=== PATIENT | male | born 1985 ===

== ENCOUNTER 2019-08-14 16:20 | Inpatient (IN) | payer SELFPAY ==
--- NOTE | 2019-08-14 16:31 | Event Note ---
ED Screening Note Date of service: 08/14/19 Time: 16:30 ED Screening Note: c/o mid abdominal pain x yesterday recent diagnosis of diabetes, not currently on medication denies alcohol This initial assessment/diagnostic orders/clinical plan/treatment(s) is/are subject to change based on patients health status, clinical progression and re- assessment by fellow clinical providers in the ED. Further treatment and workup at subsequent clinical providers discretion. Patient/guardian urged not to elope from the ED as their condition may be serious if not clinically assessed and managed. Initial orders include: labs CT
[2019-08-14 16:47] LABS: Hematocrit 51.5 % (35.5-45.6); Hemoglobin 17.8 gm/dl (11.8-15.2); Mean Corpuscular HGB Conc 35 % (32-34); Mean Corpuscular Volume 90 fl (84-94); Platelet Count 420 K/mm3 (140-440); Red Cell Distribution Width 13.3 % (13.2-15.2)
[2019-08-14] MEDS ORDERED: DEXTROSE 50% IN WATER (25GM) 50 ML SYRINGE IV PRN (16:58)
[2019-08-14] MEDS ORDERED: SODIUM CHLORIDE 0.9% 1000 ML 1,000 ML IV ONE ×3 (16:58→17:34)
[2019-08-14] MEDS ORDERED: INSULIN REGULAR, HUMAN 100 UNITS in SODIUM CHLORIDE 0.9% 99 ML IV SCH (17:00)
[2019-08-14 17:03] LABS: Albumin 5.4 g/dL (3.9-5); Bilirubin,Direct 0.3 mg/dL (0-0.2); Calcium 9.5 mg/dL (8.4-10.2)
[2019-08-14] MEDS ORDERED: ONDANSETRON 4 MG/2 ML INJ IV ONE (17:16)
[2019-08-14] MEDS ORDERED: FAMOTIDINE 20 MG/2 ML INJ IV ONE (17:16)
[2019-08-14] MEDS ORDERED: MORPHINE 4 MG/1 ML INJ IV ONE (17:17)
[2019-08-14 17:22] LABS: Anisocytosis Few; Basophils % (Manual) 0 % (0.0-1.8); Eosinophils % (Manual) 0 % (0.0-4.3); Monocytes % (Manual) 0 % (0.0-7.3); Stomatocytes Few; Total Cells Counted 100
[2019-08-14 17:23] LABS: Giant Platelets Rare; Large Platelets 1+; Platelet Estimate Consistent w Auto
--- NOTE | 2019-08-14 17:47 | Emergency Department Report ---
ED Abdominal Pain HPI - General Chief Complaint: Abdominal Pain Stated Complaint: STOMACH PAIN VOMITING Time Seen by Provider: 08/14/19 16:27 Source: patient Mode of arrival: Ambulatory Limitations: No Limitations - History of Present Illness Initial Comments: 35-year-old male with a past medical history [id number] diabetes presents to the hospital planing of hyperglycemia, nausea, vomiting, and generalized abdominal pain for last 3 days. Patient has been diagnosed with diabetes 1 year ago and is from [place]. 3 weeks ago he ran out of his previously prescribed medication from [place]. Yesterday he went to an urgent care clinic with complaints of nausea and vomiting. He was told that his sugar was high and he had a UTI. He was started on metformin 850 mg twice daily and an unknown antibiotic. He was told if his nausea vomiting continued he would need to go to the ER. Patient reports polyuria up until about 2 days ago.. Denies previous history of DKA or ICU admission. Patient complains of generalized burning pain with intermittent sharpness that is worse with palpation. He denies diarrhea, fever, history of previous abd surgeries. - Related Data Home Medications Medication Instructions Recorded Confirmed Last Taken Lisinopril [Zestril] 5 mg PO ONCE 08/14/19 08/14/19 Unknown metFORMIN [Glucophage] 850 mg PO ONCE 08/14/19 08/14/19 Unknown Allergies Allergy/AdvReac Type Severity Reaction Status Date / Time No Known Allergies Allergy Verified 08/14/19 16:22 ED Review of Systems ROS: Stated complaint: STOMACH PAIN VOMITING Other details as noted in HPI Comment: All other systems reviewed and negative ED Past Medical Hx - Past Medical History Previous Medical History?: Yes Hx Diabetes: Yes - Surgical History Past Surgical History?: No - Social History Smoking Status: Never Smoker Substance Use Type: None - Medications Home Medications: Home Medications Medication Instructions Recorded Confirmed Last Taken Type Lisinopril [Zestril] 5 mg PO ONCE 08/14/19 08/14/19 Unknown History metFORMIN [Glucophage] 850 mg PO ONCE 08/14/19 08/14/19 Unknown History ED Physical Exam - General Limitations: No Limitations - Other Other exam information: General: No acute distress Head: Atraumatic Eyes: normal appearance ENT: Dry mucous membrane Neck: Normal appearance, no midline tenderness Chest: Clear to auscultation bilaterally CV: Tachycardic regular rhythm Abdomen: Soft, normal bowel sounds, right lower quadrant and epigastric tenderness, no rebound or guarding Back: Normal inspection Extremity: Normal inspection, full range of motion Neuro: Alert O x 3, no facial asymmetry, speech clear, no gross motor sensory deficit Psych: Appropriate behavior Skin: No rash ED Course Vital Signs 08/14/19 08/14/19 08/14/19 16:31 17:30 18:09 Temperature 98.7 F Pulse Rate 137 H 107 H 105 H Respiratory 18 24 24 Rate Blood Pressure 145/86 Blood Pressure 129/75 148/69 [Right] O2 Sat by Pulse 100 99 98 Oximetry 08/14/19 19:41 Temperature Pulse Rate 106 H Respiratory 18 Rate Blood Pressure Blood Pressure 120/60 [Right] O2 Sat by Pulse 99 Oximetry ED Medical Decision Making - Lab Data Result diagrams: 08/14/19 16:37 08/14/19 21:19 Lab Results 08/14/19 08/14/19 08/14/19 Range/Units 16:37 16:37 16:37 WBC 15.7 H (4.5-11.0) K/mm3 RBC 5.70 H (3.65-5.03) M/mm3 Hgb 17.8 H (11.8-15.2) gm/dl Hct 51.5 H (35.5-45.6) % MCV 90 (84-94) fl MCH 31 (28-32) pg MCHC 35 H (32-34) % RDW 13.3 (13.2-15.2) % Plt Count 420 (140-440) K/mm3 Add Manual Diff Complete Total Counted 100 Seg Neutrophils % Booth Supervisor Seg Neuts % (Manual) 90.0 H (40.0-70.0) % Band Neutrophils % 0 % Lymphocytes % (Manual) 10.0 L (13.4-35.0) % Reactive Lymphs % (Man) 0 % Monocytes % (Manual) 0 (0.0-7.3) % Eosinophils % (Manual) 0 (0.0-4.3) % Basophils % (Manual) 0 (0.0-1.8) % Metamyelocytes % 0 % Myelocytes % 0 % Promyelocytes % 0 % Blast Cells % 0 % Nucleated RBC % Not Reportable Seg Neutrophils # Man 14.1 H (1.8-7.7) K/mm3 Band Neutrophils # 0.0 K/mm3 Lymphocytes # (Manual) 1.6 (1.2-5.4) K/mm3 Abs React Lymphs (Man) 0.0 K/mm3 Monocytes # (Manual) 0.0 (0.0-0.8) K/mm3 Eosinophils # (Manual) 0.0 (0.0-0.4) K/mm3 Basophils # (Manual) 0.0 (0.0-0.1) K/mm3 Metamyelocytes # 0.0 K/mm3 Myelocytes # 0.0 K/mm3 Promyelocytes # 0.0 K/mm3 Blast Cells # 0.0 K/mm3 WBC Morphology Not Reportable Hypersegmented Neuts Not Reportable Hyposegmented Neuts Not Reportable Hypogranular Neuts Not Reportable Smudge Cells Not Reportable Toxic Granulation Not Reportable Toxic Vacuolation Not Reportable Dohle Bodies Not Reportable Pelger-Huet Anomaly Not Reportable Pramod Rods Not Reportable Platelet Estimate Consistent w auto Clumped Platelets Not Reportable Plt Clumps, EDTA Not Reportable Large Platelets 1+ Giant Platelets Rare Platelet Satelliting Not Reportable Plt Morphology Comment Not Reportable RBC Morphology Not Reportable Dimorphic RBCs Not Reportable Polychromasia Not Reportable Hypochromasia Not Reportable Poikilocytosis Not Reportable Anisocytosis Few Microcytosis Not Reportable Macrocytosis Not Reportable Spherocytes Not Reportable Pappenheimer Bodies Not Reportable Sickle Cells Not Reportable Target Cells Not Reportable Tear Drop Cells Not Reportable Ovalocytes Not Reportable Stomatocytes Few Helmet Cells Not Reportable [place] Bodies Not Reportable [place] Rings Not Reportable Naresh Cells Not Reportable Bite Cells Not Reportable Crenated Cell Not Reportable Elliptocytes Not Reportable Acanthocytes (Spur) Not Reportable Rouleaux Not Reportable Hemoglobin C Crystals Not Reportable Schistocytes Not Reportable Malaria parasites Not Reportable Dilshad Bodies Not Reportable Hem Pathologist Commnt No VBG pH (7.320-7.420) Sodium 127 L (137-145) mmol/L Potassium 4.2 (3.6-5.0) mmol/L Chloride 84.0 L (98-107) mmol/L Carbon Dioxide 5 L* (22-30) mmol/L Anion Gap 42 mmol/L BUN 22 H (9-20) mg/dL Creatinine 1.5 (0.8-1.5) mg/dL Estimated GFR 54 ml/min BUN/Creatinine Ratio 15 % Glucose 530 H* (75-100) mg/dL POC Glucose 426 H (70-105) Lactic Acid (0.7-2.0) mmol/L Calcium 9.5 (8.4-10.2) mg/dL Phosphorus (2.5-4.5) mg/dL Magnesium (1.7-2.3) mg/dL Total Bilirubin 0.80 (0.1-1.2) mg/dL Direct Bilirubin 0.3 H (0-0.2) mg/dL Indirect Bilirubin 0.5 mg/dL AST 13 (5-40) units/L ALT 37 (7-56) units/L Alkaline Phosphatase 167 H (35-129) units/L Total Protein 8.7 H (6.3-8.2) g/dL Albumin 5.4 H (3.9-5) g/dL Albumin/Globulin Ratio 1.6 % Lipase (13-60) units/L 08/14/19 08/14/19 08/14/19 Range/Units 16:37 16:37 Unknown WBC (4.5-11.0) K/mm3 RBC (3.65-5.03) M/mm3 Hgb (11.8-15.2) gm/dl Hct (35.5-45.6) % MCV (84-94) fl MCH (28-32) pg MCHC (32-34) % RDW (13.2-15.2) % Plt Count (140-440) K/mm3 Add Manual Diff Total Counted Seg Neutrophils % Seg Neuts % (Manual) (40.0-70.0) % Band Neutrophils % % Lymphocytes % (Manual) (13.4-35.0) % Reactive Lymphs % (Man) % Monocytes % (Manual) (0.0-7.3) % Eosinophils % (Manual) (0.0-4.3) % Basophils % (Manual) (0.0-1.8) % Metamyelocytes % % Myelocytes % % Promyelocytes % % Blast Cells % % Nucleated RBC % Seg Neutrophils # Man (1.8-7.7) K/mm3 Band Neutrophils # K/mm3 Lymphocytes # (Manual) (1.2-5.4) K/mm3 Abs React Lymphs (Man) K/mm3 Monocytes # (Manual) (0.0-0.8) K/mm3 Eosinophils # (Manual) (0.0-0.4) K/mm3 Basophils # (Manual) (0.0-0.1) K/mm3 Metamyelocytes # K/mm3 Myelocytes # K/mm3 Promyelocytes # K/mm3 Blast Cells # K/mm3 WBC Morphology Hypersegmented Neuts Hyposegmented Neuts Hypogranular Neuts Smudge Cells Toxic Granulation Toxic Vacuolation Dohle Bodies Pelger-Huet Anomaly Pramod Rods Platelet Estimate Clumped Platelets Plt Clumps, EDTA Large Platelets Giant Platelets Platelet Satelliting Plt Morphology Comment RBC Morphology Dimorphic RBCs Polychromasia Hypochromasia Poikilocytosis Anisocytosis Microcytosis Macrocytosis Spherocytes Pappenheimer Bodies Sickle Cells Target Cells Tear Drop Cells Ovalocytes Stomatocytes Helmet Cells [place] Bodies [place] Rings Weare Cells Bite Cells Crenated Cell Elliptocytes Acanthocytes (Spur) Rouleaux Hemoglobin C Crystals Schistocytes Malaria parasites Dilshad Bodies Hem Pathologist Commnt VBG pH 7.088 L* (7.320-7.420) Sodium (137-145) mmol/L Potassium (3.6-5.0) mmol/L Chloride (98-107) mmol/L Carbon Dioxide (22-30) mmol/L Anion Gap mmol/L BUN (9-20) mg/dL Creatinine (0.8-1.5) mg/dL Estimated GFR ml/min BUN/Creatinine Ratio % Glucose (75-100) mg/dL POC Glucose (70-105) Lactic Acid 2.60 H* (0.7-2.0) mmol/L Calcium (8.4-10.2) mg/dL Phosphorus (2.5-4.5) mg/dL Magnesium (1.7-2.3) mg/dL Total Bilirubin (0.1-1.2) mg/dL Direct Bilirubin (0-0.2) mg/dL Indirect Bilirubin mg/dL AST (5-40) units/L ALT (7-56) units/L Alkaline Phosphatase (35-129) units/L Total Protein (6.3-8.2) g/dL Albumin (3.9-5) g/dL Albumin/Globulin Ratio % Lipase 683 H (13-60) units/L 08/14/19 Range/Units Unknown WBC (4.5-11.0) K/mm3 RBC (3.65-5.03) M/mm3 Hgb (11.8-15.2) gm/dl Hct (35.5-45.6) % MCV (84-94) fl MCH (28-32) pg MCHC (32-34) % RDW (13.2-15.2) % Plt Count (140-440) K/mm3 Add Manual Diff Total Counted Seg Neutrophils % Seg Neuts % (Manual) (40.0-70.0) % Band Neutrophils % % Lymphocytes % (Manual) (13.4-35.0) % Reactive Lymphs % (Man) % Monocytes % (Manual) (0.0-7.3) % Eosinophils % (Manual) (0.0-4.3) % Basophils % (Manual) (0.0-1.8) % Metamyelocytes % % Myelocytes % % Promyelocytes % % Blast Cells % % Nucleated RBC % Seg Neutrophils # Man (1.8-7.7) K/mm3 Band Neutrophils # K/mm3 Lymphocytes # (Manual) (1.2-5.4) K/mm3 Abs React Lymphs (Man) K/mm3 Monocytes # (Manual) (0.0-0.8) K/mm3 Eosinophils # (Manual) (0.0-0.4) K/mm3 Basophils # (Manual) (0.0-0.1) K/mm3 Metamyelocytes # K/mm3 Myelocytes # K/mm3 Promyelocytes # K/mm3 Blast Cells # K/mm3 WBC Morphology Hypersegmented Neuts Hyposegmented Neuts Hypogranular Neuts Smudge Cells Toxic Granulation Toxic Vacuolation Dohle Bodies Pelger-Huet Anomaly Pramod Rods Platelet Estimate Clumped Platelets Plt Clumps, EDTA Large Platelets Giant Platelets Platelet Satelliting Plt Morphology Comment RBC Morphology Dimorphic RBCs Polychromasia Hypochromasia Poikilocytosis Anisocytosis Microcytosis Macrocytosis Spherocytes Pappenheimer Bodies Sickle Cells Target Cells Tear Drop Cells Ovalocytes Stomatocytes Helmet Cells [place] Bodies [place] Rings Weare Cells Bite Cells Crenated Cell Elliptocytes Acanthocytes (Spur) Rouleaux Hemoglobin C Crystals Schistocytes Malaria parasites Dilshad Bodies Hem Pathologist Commnt VBG pH (7.320-7.420) Sodium (137-145) mmol/L Potassium (3.6-5.0) mmol/L Chloride (98-107) mmol/L Carbon Dioxide (22-30) mmol/L Anion Gap mmol/L BUN (9-20) mg/dL Creatinine (0.8-1.5) mg/dL Estimated GFR ml/min BUN/Creatinine Ratio % Glucose (75-100) mg/dL POC Glucose (70-105) Lactic Acid (0.7-2.0) mmol/L Calcium (8.4-10.2) mg/dL Phosphorus 5.50 H (2.5-4.5) mg/dL Magnesium 2.40 H (1.7-2.3) mg/dL Total Bilirubin (0.1-1.2) mg/dL Direct Bilirubin (0-0.2) mg/dL Indirect Bilirubin mg/dL AST (5-40) units/L ALT (7-56) units/L Alkaline Phosphatase (35-129) units/L Total Protein (6.3-8.2) g/dL Albumin (3.9-5) g/dL Albumin/Globulin Ratio % Lipase (13-60) units/L - EKG Data -: EKG Interpreted by [place] EKG shows normal: sinus rhythm, intervals (qtc 489) Rate: tachycardia (112) - Radiology Data Radiology results: report reviewed CT ABDOMEN AND PELVIS WITH IV CONTRAST INDICATION: Generalized abdominal pain and new onset diabetes. TECHNIQUE: Following the administration of intravenous contrast, multiple axial CT images of the abdomen and pelvis were acquired. Sagittal and coronal reformats were obtained. All CT performed at this facility utilize dose reduction techniques including automated exposure control, iterative reconstruction and weight based dosing when appropriate to reduce patient radiation dose to as low as reasonably achievable. COMPARISON: None FINDINGS: Limited imaging of the bilateral lung bases demonstrates no acute ab normality. Abdomen: There is moderate fluid-filled distention of the stomach. The liver, spleen, pancreas, bilateral adrenal glands and bilateral kidneys show no evidence of acute abnormality. There is no evidence of bowel obstruction or free fluid. The appendix is visualized and appears normal. Pelvis: No free fluid is seen within the pelvis. The urinary bladder appears normal. Bones and Soft Tissues: No significant abnormality. IMPRESSION: 1. Moderate fluid-filled distention of the stomach which is nonspecific but may suggest gastritis. - Medical Decision Making Patient presents with signs and symptoms of DKA with significant anion gap metabolic acidosis and nausea vomiting. CT and pelvis suggestive of gastritis. Patient treated with normal saline, insulin drip, Zofran, Pepcid, and morphine in the ED. At time of disposition awaiting urine collection to determine if IV antibiotics is indicated. Case discussed with hospitalist for admission and ICU orders placed UA neg for infection - Differential Diagnosis DKA, HHNK, pancreatitis, dehydration, sepsis, UTI Critical Care Time: Yes Critical care time in (mins) excluding proc time.: 35 Critical care attestation.: If time is entered above; I have spent that time in minutes in the direct care of this critically ill patient, excluding procedure time. ED Disposition Clinical Impression: DKA (diabetic ketoacidoses) Disposition: OP ADMIT IP TO THIS HOSP Is pt being admited?: Yes Condition: Stable Time of Disposition: 18:09 (Dr Gillette/hosp)
--- NOTE | 2019-08-14 18:03 | Cat Scan Report ---
CT ABDOMEN AND PELVIS WITH IV CONTRAST INDICATION: Generalized abdominal pain and new onset diabetes. TECHNIQUE: Following the administration of intravenous contrast, multiple axial CT images of the abdo men and pelvis were acquired. Sagittal and coronal reformats were obtained. All CT performed at this facility utilize dose reduction techniques including automated exposure control, iterative reconstru ction and weight based dosing when appropriate to reduce patient radiation dose to as low as reasonab ly achievable. COMPARISON: None FINDINGS: Limited imaging of the bilateral lung bases demonstrates no acute abnormality. Abdomen: There is moderate fluid-filled distention of the stomach. The liver, spleen, pancreas, bilat eral adrenal glands and bilateral kidneys show no evidence of acute abnormality. There is no evidence of bowel obstruction or free fluid. The appendix is visualized and appears normal. Pelvis: No free fluid is seen within the pelvis. The urinary bladder appears normal. Bones and Soft Tissues: No significant abnormality. IMPRESSION: 1. Moderate fluid-filled distention of the stomach which is nonspecific but may suggest gastritis. Signer Name: Carlie Mayer MD Signed: 08/14/2019 5:59 PM Workstation Name: [id number]
[2019-08-14] MEDS ORDERED: SODIUM CHLORIDE 0.9% 1000 ML 1,000 ML ONE (19:10)
[2019-08-14 20:17] LABS: Bilirubin,Urine NEG (Negative); Blood,Urine SM (Negative); Color,Urine Straw (Yellow); Hyaline Casts,Urine 1 /LPF; Mucus,Urine FEW /HPF; Urobilinogen,Urine < 2.0 mg/dL (<2.0)
[2019-08-14 20:42] LABS: BUN/Creatinine Ratio 22; Blood Urea Nitrogen 22 mg/dL (9-20); Calcium 8.9 mg/dL (8.4-10.2); Hemolysis Index 6
[2019-08-14] MEDS ORDERED: oxyCODONE /ACETAMINOPHEN 5-325MG TAB PO PRN (20:50)
[2019-08-14] MEDS ORDERED: KETOROLAC 30 MG/1 ML INJ IV PRN (20:50)
[2019-08-14] MEDS ORDERED: HYDROmorphone 1 MG/1 ML INJ IV PRN (20:50)
--- NOTE | 2019-08-14 20:50 | History and Physical Report ---
History of Present Illness Date of examination: 08/14/19 Date of admission: 08/14/19 18:12 History of present illness: 35-year-old male with a past medical history [id number] diabetes presents to the hospital planing of hyperglycemia, nausea, vomiting, and generalized abdominal pain for last 3 days. Patient has been diagnosed with diabetes 1 year ago and is from [place]. 3 weeks ago he ran out of his previously prescribed medication from [place]. Yesterday he went to an urgent care clinic with complaints of nausea and vomiting. He was told that his sugar was high and he had a UTI. He was started on metformin 850 mg twice daily and an unknown antibiotic. He was told if his nausea vomiting continued he would need to go to the ER. Patient reports polyuria up until about 2 days ago.. Denies previous history of DKA or ICU admission. Patient complains of generalized burning pain with intermittent sharpness that is worse with palpation. He denies diarrhea, fever, history of previous abd surgeries. - Related Data Allergies Allergy/AdvReac Type Severity Reaction Status Date / Time No Known Allergies Allergy Verified 08/14/19 16:22 Review of Systems ROS: Stated complaint: STOMACH PAIN VOMITING Other details as noted in HPI Comment: All other systems reviewed and negative - Past Medical History Previous Medical History?: Yes Hx Diabetes: Yes - Surgical History Past Surgical History?: No - Social History Smoking Status: Never Smoker Substance Use Type: None Medications and Allergies Allergies Allergy/AdvReac Type Severity Reaction Status Date / Time No Known Allergies Allergy Verified 08/14/19 16:22 Home Medications Medication Instructions Recorded Confirmed Last Taken Type metFORMIN [Glucophage] 850 mg PO 08/14/19 Unknown History Active Meds: Active Medications Dextrose (D50w (25gm) Syringe) 0 ml IV Q30MIN PRN; Protocol PRN Reason: Hypoglycemia Insulin Human Regular 100 (units/ Sodium Chloride) 100 mls @ 1 mls/hr IV TITR JAELYN; Protocol Last Titration: 08/14/19 20:15 Dose: 5 units/hr, 5 mls/hr Documented by: Exam - Constitutional Vitals: Temp Pulse Resp BP Pulse Ox 98.7 F 106 H 18 120/60 99 08/14/19 16:31 08/14/19 19:41 08/14/19 19:41 08/14/19 19:41 08/14/19 19:41 Results - Labs CBC & Chem 7: 08/14/19 16:37 08/14/19 20:09 Labs: Laboratory Last Values WBC 15.7 K/mm3 (4.5-11.0) H 08/14/19 16:37 RBC 5.70 M/mm3 (3.65-5.03) H 08/14/19 16:37 Hgb 17.8 gm/dl (11.8-15.2) H 08/14/19 16:37 Hct 51.5 % (35.5-45.6) H 08/14/19 16:37 MCV 90 fl (84-94) 08/14/19 16:37 MCH 31 pg (28-32) 08/14/19 16:37 MCHC 35 % (32-34) H 08/14/19 16:37 RDW 13.3 % (13.2-15.2) 08/14/19 16:37 Plt Count 420 K/mm3 (140-440) 08/14/19 16:37 Add Manual Diff Complete 08/14/19 16:37 Total Counted 100 08/14/19 16:37 Seg Neutrophils % Lead Burner Supervisor 08/14/19 16:37 Seg Neuts % (Manual) 90.0 % (40.0-70.0) H 08/14/19 16:37 Band Neutrophils % 0 % 08/14/19 16:37 Lymphocytes % (Manual) 10.0 % (13.4-35.0) L 08/14/19 16:37 Reactive Lymphs % (Man) 0 % 08/14/19 16:37 Monocytes % (Manual) 0 % (0.0-7.3) 08/14/19 16:37 Eosinophils % (Manual) 0 % (0.0-4.3) 08/14/19 16:37 Basophils % (Manual) 0 % (0.0-1.8) 08/14/19 16:37 Metamyelocytes % 0 % 08/14/19 16:37 Myelocytes % 0 % 08/14/19 16:37 Promyelocytes % 0 % 08/14/19 16:37 Blast Cells % 0 % 08/14/19 16:37 Nucleated RBC % Not Reportable 08/14/19 16:37 Seg Neutrophils # Man 14.1 K/mm3 (1.8-7.7) H 08/14/19 16:37 Band Neutrophils # 0.0 K/mm3 08/14/19 16:37 Lymphocytes # (Manual) 1.6 K/mm3 (1.2-5.4) 08/14/19 16:37 Abs React Lymphs (Man) 0.0 K/mm3 08/14/19 16:37 Monocytes # (Manual) 0.0 K/mm3 (0.0-0.8) 08/14/19 16:37 Eosinophils # (Manual) 0.0 K/mm3 (0.0-0.4) 08/14/19 16:37 Basophils # (Manual) 0.0 K/mm3 (0.0-0.1) 08/14/19 16:37 Metamyelocytes # 0.0 K/mm3 08/14/19 16:37 Myelocytes # 0.0 K/mm3 08/14/19 16:37 Promyelocytes # 0.0 K/mm3 08/14/19 16:37 Blast Cells # 0.0 K/mm3 08/14/19 16:37 WBC Morphology Not Reportable 08/14/19 16:37 Hypersegmented Neuts Not Reportable 08/14/19 16:37 Hyposegmented Neuts Not Reportable 08/14/19 16:37 Hypogranular Neuts Not Reportable 08/14/19 16:37 Smudge Cells Not Reportable 08/14/19 16:37 Toxic Granulation Not Reportable 08/14/19 16:37 Toxic Vacuolation Not Reportable 08/14/19 16:37 Dohle Bodies Not Reportable 08/14/19 16:37 Pelger-Huet Anomaly Not Reportable 08/14/19 16:37 Pramod Rods Not Reportable 08/14/19 16:37 Platelet Estimate Consistent w auto 08/14/19 16:37 Clumped Platelets Not Reportable 08/14/19 16:37 Plt Clumps, EDTA Not Reportable 08/14/19 16:37 Large Platelets 1+ 08/14/19 16:37 Giant Platelets Rare 08/14/19 16:37 Platelet Satelliting Not Reportable 08/14/19 16:37 Plt Morphology Comment Not Reportable 08/14/19 16:37 RBC Morphology Not Reportable 08/14/19 16:37 Dimorphic RBCs Not Reportable 08/14/19 16:37 Polychromasia Not Reportable 08/14/19 16:37 Hypochromasia Not Reportable 08/14/19 16:37 Poikilocytosis Not Reportable 08/14/19 16:37 Anisocytosis Few 08/14/19 16:37 Microcytosis Not Reportable 08/14/19 16:37 Macrocytosis Not Reportable 08/14/19 16:37 Spherocytes Not Reportable 08/14/19 16:37 Pappenheimer Bodies Not Reportable 08/14/19 16:37 Sickle Cells Not Reportable 08/14/19 16:37 Target Cells Not Reportable 08/14/19 16:37 Tear Drop Cells Not Reportable 08/14/19 16:37 Ovalocytes Not Reportable 08/14/19 16:37 Stomatocytes Few 08/14/19 16:37 Helmet Cells Not Reportable 08/14/19 16:37 [place] Bodies Not Reportable 08/14/19 16:37 [place] Rings Not Reportable 08/14/19 16:37 Naresh Cells Not Reportable 08/14/19 16:37 Bite Cells Not Reportable 08/14/19 16:37 Crenated Cell Not Reportable 08/14/19 16:37 Elliptocytes Not Reportable 08/14/19 16:37 Acanthocytes (Spur) Not Reportable 08/14/19 16:37 Rouleaux Not Reportable 08/14/19 16:37 Hemoglobin C Crystals Not Reportable 08/14/19 16:37 Schistocytes Not Reportable 08/14/19 16:37 Malaria parasites Not Reportable 08/14/19 16:37 Dilshad Bodies Not Reportable 08/14/19 16:37 Hem Pathologist Commnt No 08/14/19 16:37 VBG pH 7.088 (7.320-7.420) L* 08/14/19 16:37 Sodium 131 mmol/L (137-145) L 08/14/19 20:09 Potassium 3.8 mmol/L (3.6-5.0) 08/14/19 20:09 Chloride 96.7 mmol/L (98-107) L 08/14/19 20:09 Carbon Dioxide 5 mmol/L (22-30) L* 08/14/19 16:37 Anion Gap 42 mmol/L 08/14/19 16:37 BUN 22 mg/dL (9-20) H 08/14/19 20:09 Creatinine 1.0 mg/dL (0.8-1.5) 08/14/19 20:09 Estimated GFR > 60 ml/min 08/14/19 20:09 BUN/Creatinine Ratio 22 % 08/14/19 20:09 Glucose 352 mg/dL (75-100) H 08/14/19 20:09 POC Glucose 273 (70-105) H 08/14/19 20:15 Lactic Acid 2.60 mmol/L (0.7-2.0) H* 08/14/19 Unknown Calcium 8.9 mg/dL (8.4-10.2) 08/14/19 20:09 Phosphorus 5.50 mg/dL (2.5-4.5) H 08/14/19 Unknown Magnesium 2.40 mg/dL (1.7-2.3) H 08/14/19 Unknown Total Bilirubin 0.80 mg/dL (0.1-1.2) 08/14/19 16:37 Direct Bilirubin 0.3 mg/dL (0-0.2) H 08/14/19 16:37 Indirect Bilirubin 0.5 mg/dL 08/14/19 16:37 AST 13 units/L (5-40) 08/14/19 16:37 ALT 37 units/L (7-56) 08/14/19 16:37 Alkaline Phosphatase 167 units/L (35-129) H 08/14/19 16:37 Total Protein 8.7 g/dL (6.3-8.2) H 08/14/19 16:37 Albumin 5.4 g/dL (3.9-5) H 08/14/19 16:37 Albumin/Globulin Ratio 1.6 % 08/14/19 16:37 Lipase 683 units/L (13-60) H 08/14/19 16:37 Urine Color Straw (Yellow) 08/14/19 20:00 Urine Turbidity Clear (Clear) 08/14/19 20:00 Urine pH 5.0 (5.0-7.0) 08/14/19 20:00 Ur Specific [place] 1.029 (1.003-1.030) 08/14/19 20:00 Urine Protein 30 mg/dl mg/dL (Negative) 08/14/19 20:00 Urine Glucose (UA) >=500 mg/dL (Negative) 08/14/19 20:00 Urine Ketones 80 mg/dL (Negative) 08/14/19 20:00 Urine Blood Sm (Negative) 08/14/19 20:00 Urine Nitrite Neg (Negative) 08/14/19 20:00 Urine Bilirubin Neg (Negative) 08/14/19 20:00 Urine Urobilinogen < 2.0 mg/dL (<2.0) 08/14/19 20:00 Ur Leukocyte Esterase Neg (Negative) 08/14/19 20:00 Urine WBC (Auto) 1.0 /HPF (0.0-6.0) 08/14/19 20:00 Urine RBC (Auto) 2.0 /HPF (0.0-6.0) 08/14/19 20:00 Hyaline Casts 1 /LPF 08/14/19 20:00 Urine Mucus Few /HPF 08/14/19 20:00
[2019-08-14] MEDS ORDERED: POTASSIUM CHLORIDE 10 MEQ 10 MEQ/100 ML BAG IV SCH (21:00)
[2019-08-14 21:39] LABS: BUN/Creatinine Ratio 22; Blood Urea Nitrogen 20 mg/dL (9-20); Calcium 8.6 mg/dL (8.4-10.2); Hemolysis Index 9
[2019-08-14] MEDS: D5W/0.9% NACL 1,000 ML IV SCH (21:51)
[2019-08-14] MEDS: INSULIN REGULAR, HUMAN 100 UNITS in SODIUM CHLORIDE 0.9% 99 ML IV SCH (22:00)
[2019-08-14] MEDS ORDERED: cefTRIAXone/NS 2 GM/100 ML 2 GM/100 ML BAG IV SCH (22:00)
[2019-08-14] MEDS: FAMOTIDINE 20 MG/2 ML INJ IV SCH (22:19)
[2019-08-15 00:20] LABS: BUN/Creatinine Ratio 21; Blood Urea Nitrogen 19 mg/dL (9-20); Calcium 8.7 mg/dL (8.4-10.2); Hemolysis Index 5
[2019-08-15] MEDS: D5W/0.9% NACL 1,000 ML IV SCH (04:06)
--- NOTE | 2019-08-15 05:57 | Event Note ---
Date: 08/14/19 See H/p in reports DKA
--- NOTE | 2019-08-15 07:17 | History and Physical Report ---
CHIEF COMPLAINT: Nausea, vomiting, and abdominal pain for 3 days. HISTORY OF PRESENT ILLNESS: A 34-year-old male with history of diabetes, on metformin, comes in for nausea, vomiting, and abdominal pain for 3 days. The patient stopped taking metformin for 3 weeks because he ran out of his medicine. The patient went to urgent care clinic with nausea and vomiting yesterday. He was told that his sugar was high, and he had a urinary tract infection. The patient is on 850 mg of metformin twice a day. Not on any sulfonylureas or insulin. The patient continued to have vomiting because of which the patient came to the Emergency Room. In the Emergency Room, the patient's bicarbonate was very low in the range of 5 and also pH of 7.088 and blood glucose level of 530, hence admission to ICU as DKA. PAST MEDICAL HISTORY: Hypertension and type 2 diabetes. MEDICATIONS: On metformin. PAST SURGICAL HISTORY: None. SOCIAL HISTORY: Does not smoke. No alcohol, no recreational drugs. FAMILY HISTORY: Diabetes. REVIEW OF SYSTEMS: Significant for nausea, vomiting, abdominal pain for 3 days. Generalized weakness for 3 days. Polyuria for 1 week. Otherwise, review of systems negative. PHYSICAL EXAMINATION: GENERAL: Young male, cooperative during examination. VITAL SIGNS: Blood pressure is 137/78, temperature is 98.5, pulse is 81, respirations are 22, sats are 98%. HEENT: Dry mucous membranes. NECK: Supple, no lymphadenopathy, no thyromegaly. LUNGS: Clear to auscultation and percussion. Good air entry. CARDIOVASCULAR SYSTEM: S1, S2 heard. No gallop, no murmur, no rub. Apical impulse in left fifth intercostal space and midclavicular line. ABDOMEN: Soft and benign. No hepatosplenomegaly, no guarding, no rigidity. Hernial orifices are normal. EXTREMITIES: Good pedal pulses. No pedal edema. CENTRAL NERVOUS SYSTEM: Alert and oriented x4, nonfocal exam. SKIN: Normal. DIAGNOSTIC DATA: CT of the abdomen shows moderate fluid-filled distention ____ nonspecific, may suggest acute gastritis. LABORATORY DATA: Significant for white count of 15,700, H and H of 17.8 and 51.5, platelet count of 420,000. ABG: pH of 7.088. Sodium of 127, potassium of 4.2, chloride of 84, bicarbonate of 5. BUN and creatinine of 22 and 1.5, glucose of 530. A1c of 11.1, magnesium of 2.2, direct bilirubin of 0.3, alkaline phosphatase of 167, total protein 8.7, albumin is 5.4. Lipase is 683. Urine shows ketones of 80, glucose of more than 500 and specific gravity of 1.029. ASSESSMENT AND PLAN: 1. Diabetic ketoacidosis. The patient is initiated on DKA protocol. The patient may need to be discharged on insulin. Novolin mix 70/30, 10 units twice a day initiated. 2. Metabolic acidosis, severe. Anion gap is 42. IV fluids, IV insulin, Zofran and Reglan for now. Monitor electrolytes. 3. Type 2 diabetes, uncontrolled. A1c 11.1, needs to be on insulin at the time of discharge. 4. Polycythemia secondary to hemoconcentration. IV fluids for now. 5. Leukocytosis. Empiric antibiotics for now. Urine negative for infection. 6. Deep venous thrombosis prophylaxis, heparin 5000 q. 12. Critical care time 32 minutes. The patient counseled about diabetes. Language barrier present. JOB# [id number] KELSY/NIDIA MARIE
[2019-08-15 07:42] LABS: BUN/Creatinine Ratio 21; Blood Urea Nitrogen 15 mg/dL (9-20); Calcium 8.7 mg/dL (8.4-10.2); Hemolysis Index 11
[2019-08-15] MEDS: INSULIN REGULAR, HUMAN 100 UNITS in SODIUM CHLORIDE 0.9% 99 ML IV SCH (08:36)
[2019-08-15] MEDS: FAMOTIDINE 20 MG/2 ML INJ IV SCH ×2 (09:17→21:52)
[2019-08-15] MEDS: POTASSIUM CHLORIDE 10 MEQ 10 MEQ/100 ML BAG IV SCH ×4 (09:28→13:36)
[2019-08-15] MEDS ORDERED: D5W/0.45% NACL/KCL 20 MEQ 20 MEQ/1,000 ML BAG IV SCH (10:00)
[2019-08-15 10:44] LABS: BUN/Creatinine Ratio 21; Blood Urea Nitrogen 15 mg/dL (9-20); Calcium 8.9 mg/dL (8.4-10.2); Hemolysis Index 3
--- NOTE | 2019-08-15 10:51 | Progress Note ---
Assessment and Plan Assessment and plan: DKA -Patient admitted to ICU and is on DKA protocol -We will continue current management -Gap is now closed, keep him n.p.o. -We will transition him to sliding scale and basal insulin once he is out of DKA -A1c is 11.1, nutrition consult for diabetic education -Patient need insulin at discharge SIRS likely noninfectious -Patient was empirically started with Rocephin, will discontinue once WBC is trended down -WBC still high, UA is negative, chest x-ray is negative DVT prophylaxis -On Lovenox Disposition -Continue ICU care History Interval history: Patient was seen and evaluated this morning, patient was alert and oriented. Complaints pain at the IV site. Hospitalist Physical - Physical exam Narrative exam: Not in cardiopulmonary distress. The patient appeared well nourished and normally developed. Vital signs as documented. Head exam is unremarkable. No scleral icterus . Neck is without jugular venous distension, thyromegaly, or carotid bruits. Lungs are clear to auscultation. Cardiac exam reveals regular rate and Rhythm. Abdominal exam reveals normal bowel sounds, nontender, no organomegaly. Extremities are nonedematous and both femoral and pedal pulses are normal. MUNITIONS WORKER: Alert and oriented 3. No focal weakness. - Constitutional Vitals: Temp Pulse Resp BP Pulse Ox 98.2 F 79 18 150/73 100 08/15/19 08:00 08/15/19 06:00 08/15/19 06:00 08/15/19 06:00 08/15/19 06:00 Results - Labs CBC & Chem 7: 08/14/19 16:37 08/15/19 10:00 Labs: Laboratory Last Values WBC 15.7 K/mm3 (4.5-11.0) H 08/14/19 16:37 RBC 5.70 M/mm3 (3.65-5.03) H 08/14/19 16:37 Hgb 17.8 gm/dl (11.8-15.2) H 08/14/19 16:37 Hct 51.5 % (35.5-45.6) H 08/14/19 16:37 MCV 90 fl (84-94) 08/14/19 16:37 MCH 31 pg (28-32) 08/14/19 16:37 MCHC 35 % (32-34) H 08/14/19 16:37 RDW 13.3 % (13.2-15.2) 08/14/19 16:37 Plt Count 420 K/mm3 (140-440) 08/14/19 16:37 Add Manual Diff Complete 08/14/19 16:37 Total Counted 100 08/14/19 16:37 Seg Neutrophils % Operator [employer] 08/14/19 16:37 Seg Neuts % (Manual) 90.0 % (40.0-70.0) H 08/14/19 16:37 Band Neutrophils % 0 % 08/14/19 16:37 Lymphocytes % (Manual) 10.0 % (13.4-35.0) L 08/14/19 16:37 Reactive Lymphs % (Man) 0 % 08/14/19 16:37 Monocytes % (Manual) 0 % (0.0-7.3) 08/14/19 16:37 Eosinophils % (Manual) 0 % (0.0-4.3) 08/14/19 16:37 Basophils % (Manual) 0 % (0.0-1.8) 08/14/19 16:37 Metamyelocytes % 0 % 08/14/19 16:37 Myelocytes % 0 % 08/14/19 16:37 Promyelocytes % 0 % 08/14/19 16:37 Blast Cells % 0 % 08/14/19 16:37 Nucleated RBC % Not Reportable 08/14/19 16:37 Seg Neutrophils # Man 14.1 K/mm3 (1.8-7.7) H 08/14/19 16:37 Band Neutrophils # 0.0 K/mm3 08/14/19 16:37 Lymphocytes # (Manual) 1.6 K/mm3 (1.2-5.4) 08/14/19 16:37 Abs React Lymphs (Man) 0.0 K/mm3 08/14/19 16:37 Monocytes # (Manual) 0.0 K/mm3 (0.0-0.8) 08/14/19 16:37 Eosinophils # (Manual) 0.0 K/mm3 (0.0-0.4) 08/14/19 16:37 Basophils # (Manual) 0.0 K/mm3 (0.0-0.1) 08/14/19 16:37 Metamyelocytes # 0.0 K/mm3 08/14/19 16:37 Myelocytes # 0.0 K/mm3 08/14/19 16:37 Promyelocytes # 0.0 K/mm3 08/14/19 16:37 Blast Cells # 0.0 K/mm3 08/14/19 16:37 WBC Morphology Not Reportable 08/14/19 16:37 Hypersegmented Neuts Not Reportable 08/14/19 16:37 Hyposegmented Neuts Not Reportable 08/14/19 16:37 Hypogranular Neuts Not Reportable 08/14/19 16:37 Smudge Cells Not Reportable 08/14/19 16:37 Toxic Granulation Not Reportable 08/14/19 16:37 Toxic Vacuolation Not Reportable 08/14/19 16:37 Dohle Bodies Not Reportable 08/14/19 16:37 Pelger-Huet Anomaly Not Reportable 08/14/19 16:37 Pramod Rods Not Reportable 08/14/19 16:37 Platelet Estimate Consistent w auto 08/14/19 16:37 Clumped Platelets Not Reportable 08/14/19 16:37 Plt Clumps, EDTA Not Reportable 08/14/19 16:37 Large Platelets 1+ 08/14/19 16:37 Giant Platelets Rare 08/14/19 16:37 Platelet Satelliting Not Reportable 08/14/19 16:37 Plt Morphology Comment Not Reportable 08/14/19 16:37 RBC Morphology Not Reportable 08/14/19 16:37 Dimorphic RBCs Not Reportable 08/14/19 16:37 Polychromasia Not Reportable 08/14/19 16:37 Hypochromasia Not Reportable 08/14/19 16:37 Poikilocytosis Not Reportable 08/14/19 16:37 Anisocytosis Few 08/14/19 16:37 Microcytosis Not Reportable 08/14/19 16:37 Macrocytosis Not Reportable 08/14/19 16:37 Spherocytes Not Reportable 08/14/19 16:37 Pappenheimer Bodies Not Reportable 08/14/19 16:37 Sickle Cells Not Reportable 08/14/19 16:37 Target Cells Not Reportable 08/14/19 16:37 Tear Drop Cells Not Reportable 08/14/19 16:37 Ovalocytes Not Reportable 08/14/19 16:37 Stomatocytes Few 08/14/19 16:37 Helmet Cells Not Reportable 08/14/19 16:37 Abdullahi-Wynot Bodies Not Reportable 08/14/19 16:37 [place] Rings Not Reportable 08/14/19 16:37 Naresh Cells Not Reportable 08/14/19 16:37 Bite Cells Not Reportable 08/14/19 16:37 Crenated Cell Not Reportable 08/14/19 16:37 Elliptocytes Not Reportable 08/14/19 16:37 Acanthocytes (Spur) Not Reportable 08/14/19 16:37 Rouleaux Not Reportable 08/14/19 16:37 Hemoglobin C Crystals Not Reportable 08/14/19 16:37 Schistocytes Not Reportable 08/14/19 16:37 Malaria parasites Not Reportable 08/14/19 16:37 Dilshad Bodies Not Reportable 08/14/19 16:37 Hem Pathologist Commnt No 08/14/19 16:37 VBG pH 7.088 (7.320-7.420) L* 08/14/19 16:37 Sodium 133 mmol/L (137-145) L 08/15/19 10:00 Potassium 3.2 mmol/L (3.6-5.0) L 08/15/19 10:00 Chloride 104.5 mmol/L (98-107) 08/15/19 10:00 Carbon Dioxide 14 mmol/L (22-30) L 08/15/19 10:00 Anion Gap 18 mmol/L 08/15/19 10:00 BUN 15 mg/dL (9-20) 08/15/19 10:00 Creatinine 0.7 mg/dL (0.8-1.5) L 08/15/19 10:00 Estimated GFR > 60 ml/min 08/15/19 10:00 BUN/Creatinine Ratio 21 % 08/15/19 10:00 Glucose 248 mg/dL (75-100) H 08/15/19 10:00 POC Glucose 229 (70-105) H 08/15/19 09:45 Hemoglobin A1c 11.1 % (4-6) H 08/14/19 21:19 Lactic Acid 2.60 mmol/L (0.7-2.0) H* 08/14/19 Unknown Calcium 8.9 mg/dL (8.4-10.2) 08/15/19 10:00 Phosphorus 5.50 mg/dL (2.5-4.5) H 08/14/19 Unknown Magnesium 2.40 mg/dL (1.7-2.3) H 08/14/19 Unknown Total Bilirubin 0.80 mg/dL (0.1-1.2) 08/14/19 16:37 Direct Bilirubin 0.3 mg/dL (0-0.2) H 08/14/19 16:37 Indirect Bilirubin 0.5 mg/dL 08/14/19 16:37 AST 13 units/L (5-40) 08/14/19 16:37 ALT 37 units/L (7-56) 08/14/19 16:37 Alkaline Phosphatase 167 units/L (35-129) H 08/14/19 16:37 Total Protein 8.7 g/dL (6.3-8.2) H 08/14/19 16:37 Albumin 5.4 g/dL (3.9-5) H 08/14/19 16:37 Albumin/Globulin Ratio 1.6 % 08/14/19 16:37 Lipase 683 units/L (13-60) H 08/14/19 16:37 Urine Color Straw (Yellow) 08/14/19 20:00 Urine Turbidity Clear (Clear) 08/14/19 20:00 Urine pH 5.0 (5.0-7.0) 08/14/19 20:00 Ur Specific [place] 1.029 (1.003-1.030) 08/14/19 20:00 Urine Protein 30 mg/dl mg/dL (Negative) 08/14/19 20:00 Urine Glucose (UA) >=500 mg/dL (Negative) 08/14/19 20:00 Urine Ketones 80 mg/dL (Negative) 08/14/19 20:00 Urine Blood Sm (Negative) 08/14/19 20:00 Urine Nitrite Neg (Negative) 08/14/19 20:00 Urine Bilirubin Neg (Negative) 08/14/19 20:00 Urine Urobilinogen < 2.0 mg/dL (<2.0) 08/14/19 20:00 Ur Leukocyte Esterase Neg (Negative) 08/14/19 20:00 Urine WBC (Auto) 1.0 /HPF (0.0-6.0) 08/14/19 20:00 Urine RBC (Auto) 2.0 /HPF (0.0-6.0) 08/14/19 20:00 Hyaline Casts 1 /LPF 08/14/19 20:00 Urine Mucus Few /HPF 08/14/19 20:00 Active Medications - Current Medications Current Medications: Generic Name Dose Route Start Last Admin Trade Name Freq PRN Reason Stop Dose Admin Dextrose 0 ml 08/14/19 16:58 D50w (25gm) Syringe IV Q30MIN PRN Hypoglycemia Protocol Famotidine 20 mg 08/14/19 22:00 08/15/19 09:17 Pepcid IV 20 mg BID JAELYN Administration Insulin Human Regular 100 100 mls @ 1 mls/hr 08/14/19 21:00 08/15/19 09:38 units/ Sodium Chloride IV 7 units/hr TITR JAELYN 7 mls/hr Titration Protocol 1 UNITS/HR Potassium Chloride/Dextrose/Sod Cl 20 meq in 1,000 mls @ 150 mls/hr 08/15/19 10:00 08/15/19 09:29 D5w/0.45% Nacl/Kcl 20 Meq IV 150 mls/hr DIRECT JAELYN Administration Potassium Chloride 10 meq in 100 mls @ 100 mls/hr 08/15/19 10:00 08/15/19 09:28 Kcl 10meq/100ml IV 08/15/19 13:59 100 mls/hr Q1H JAELYN Administration Ketorolac Tromethamine 15 mg 08/14/19 20:50 08/15/19 08:21 Toradol IV 08/19/19 20:49 15 mg Q6H PRN Administration Pain, Mild (1-3) Oxycodone/Acetaminophen 1 tab 08/14/19 20:50 08/14/19 22:14 Percocet 5/325 PO 1 tab Q6H PRN Administration Pain, Moderate (4-6) Sodium Chloride 10 ml 08/14/19 22:00 08/15/19 09:19 Sodium Chloride Flush Syringe 10 Ml IV 10 ml BID JAELYN Administration Sodium Chloride 10 ml 08/14/19 20:50 Sodium Chloride Flush Syringe 10 Ml IV PRN PRN LINE FLUSH
[2019-08-15 13:52] LABS: BUN/Creatinine Ratio 21; Blood Urea Nitrogen 15 mg/dL (9-20); Calcium 8.9 mg/dL (8.4-10.2); Hemolysis Index 10
[2019-08-15] MEDS ORDERED: SODIUM BICARB 8.4% 50 MEQ/50 ML SYRINGE IV ONE (16:00)
[2019-08-15] MEDS: INSULIN NPH, HUMAN 100 UNIT/1 ML SUB-Q SCH (16:05)
[2019-08-15] MEDS: INSULIN LISPRO 100 UNIT/ML SUB-Q SCH ×2 (16:09→21:48)
[2019-08-15 19:47] LABS: BUN/Creatinine Ratio 24; Blood Urea Nitrogen 17 mg/dL (9-20); Calcium 8.7 mg/dL (8.4-10.2); Hemolysis Index 10
[2019-08-15 21:36] LABS: BUN/Creatinine Ratio 21; Blood Urea Nitrogen 15 mg/dL (9-20); Calcium 8.7 mg/dL (8.4-10.2); Hemolysis Index 7
[2019-08-15] MEDS ORDERED: ENOXAPARIN 40 MG/0.4 ML INJ SUB-Q SCH (22:00)
[2019-08-16 06:28] VITALS: BP 113/56
[2019-08-16] MEDS: INSULIN NPH, HUMAN 100 UNIT/1 ML SUB-Q SCH (09:05)
[2019-08-16] MEDS: INSULIN LISPRO 100 UNIT/ML SUB-Q SCH ×2 (09:05→12:48)
--- NOTE | 2019-08-16 09:25 | Discharge Summary ---
Providers - Providers Date of Admission: 08/14/19 18:12 Attending physician: DANO VALENCIA MD 08/14/19 20:51 Consult to Dietitian/Nutrition [CONS] Routine Physician Instructions: Reason For Exam: DKA Reason for Consult: Nutrition Recommendations Reason for Consult: Diet education Primary care physician: ECONOMIC RESEARCH ANALYST Hospitalization Reason for admission: DKA Condition: Stable Hospital course: 35-year-old male with a past medical history [id number] diabetes presents to the hospital planing of hyperglycemia, nausea, vomiting, and generalized abdominal pain for last 3 days. Patient has been diagnosed with diabetes 1 year ago and is from [place]. 3 weeks ago he ran out of his previously prescribed medication from [place]. Yesterday he went to an urgent care clinic with complaints of nausea and vomiting. He was told that his sugar was high and he had a UTI. He was started on metformin 850 mg twice daily and an unknown antibiotic. He was told if his nausea vomiting continued he would need to go to the ER. Patient reports polyuria up until about 2 days ago.. Denies previous history of DKA or ICU admission. Patient complains of generalized burning pain with intermittent sharpness that is worse with palpation. He denies diarrhea, fever, history of previous abd surgerieS Patient was admitted to the ICU and started on DKA protocol with rapid improvement. Is clinically stable at this time blood sugar did elevate mildly. 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 He was treated empirically with Rocephin although no no clear source of infection was identified this was felt to be reactive. Hemoglobin A1c was noted at 11.1 extensive counseling was provided to the patient he verbalized understanding family is at bedside. Imaging studies were reviewed and were negative urinalysis was negative. DKA Uncontrolled diabetes mellitus SIRS without organ dysfunction Leukocytosis-reactive Hyponatremia Disposition: TO HOME OR SELFCARE Time spent for discharge: 35 mins Core Measure Documentation - Palliative Care Palliative Care/ Comfort Measures: Not Applicable - Core Measures Any of the following diagnoses?: none Exam - Physical Exam Narrative exam: VITAL SIGNS: Reviewed. GENERAL: The patient appears normally developed, Vital signs as documented. HEAD: No signs of head trauma. EYES: Pupils are equal. Extraocular motions intact. EARS: Hearing grossly intact. MOUTH: Oropharynx is normal. NECK: No adenopathy, no JVD. CHEST: Chest with clear breath sounds bilaterally. No wheezes, rales, or rhonchi. CARDIAC: Regular rate and rhythm. S1 and S2, without murmurs, gallops, or rubs. VASCULAR: No Edema. Peripheral pulses normal and equal in all extremities. ABDOMEN: Soft, non tender and non distended. No rebound or guarding, and no masses palpated. Bowel Sounds normal. MUSCULOSKELETAL: Good range of motion of all major joints. Extremities without clubbing, cyanosis or edema. NEUROLOGIC EXAM: Alert and oriented x 3 No focal sensory or strength deficits. Speech normal. Follows commands. PSYCHIATRIC: Mood normal. SKIN: detial exam as documented in skin assessment - Constitutional Vitals: Temp Pulse Resp BP Pulse Ox 97.8 F 73 20 113/56 96 08/16/19 04:55 08/16/19 04:55 08/16/19 04:55 08/16/19 04:55 08/16/19 04:55 Plan Activity: advance as tolerated, fall precautions Diet: diabetic Special Instructions: record daily weights, record daily BP diary, record blood sugar diary Follow up with: [facility] [Outside] - 7 Days Prescriptions: glipiZIDE [Glucotrol] 5 mg PO QDAY #30 tablet Insulin NPH/Regular [Novolin 70/30] 20 unit SQ BIDDIAB 30 Days ml Other Discharge Orders: Glucometer (Amb) Location: None Selected Glucometer supplies[Amb] Location: None Selected
[2019-08-16] MEDS: FAMOTIDINE 20 MG/2 ML INJ IV SCH (10:52)
== END 2019-08-16 14:45 | disposition home or self-care (01) | DRG 638 ==
LOC: ED 16:20 → CC1 18:12 → 3A 08-15 18:10
PROVIDERS: ADMIT Internal Medicine; ATTEND Internal Medicine
DX: E11.10 Type 2 diabetes mellitus with ketoacidosis without coma (principal); R65.10 Systemic inflammatory response syndrome (SIRS) of non-infectious origin without acute organ dysfunction; E87.1 Hypo-osmolality and hyponatremia; D75.1 Secondary polycythemia; D72.829 Elevated white blood cell count, unspecified; I10 Essential (primary) hypertension; Z83.3 Family history of diabetes mellitus
CPT/HCPCS: 36415; 74177; 80048; 80076; 81001; 82140; 82805; 82962; 83036; 83690; 83735; 84100; 85007; 85025; 87040; 93005; 93010; G0378; J0696; J1650; J1815; J1885; J2270; J2405; J3480; J7030; J7042; Q9967

== ENCOUNTER 2021-11-29 14:54 | Emergency (ER) | payer SELFPAY ==
[2021-11-29 15:17] VITALS: BP 99/69
--- NOTE | 2021-11-29 15:38 | XRay Report ---
CHEST 2 VIEWS INDICATION / CLINICAL INFORMATION: fall, injury. COMPARISON: None available. FINDINGS: SUPPORT DEVICES: None. HEART / MEDIASTINUM: No significant abnormality. LUNGS / PLEURA: No significant pulmonary or pleural abnormality. No pneumothorax. ADDITIONAL FINDINGS: No significant additional findings. IMPRESSION: 1. No acute findings. Signer Name: Fortunato Yañez MD Signed: 11/29/2021 3:34 PM Workstation Name: [id number]
== END 2021-12-01 06:43 | disposition left against medical advice (07) ==
LOC: ED 14:54
DX: R07.9 Chest pain, unspecified (principal); Z53.21 Procedure and treatment not carried out due to patient leaving prior to being seen by health care provider
CPT/HCPCS: 71046